=== PATIENT | male | born 2000 | race Caucasian/White ===

== ENCOUNTER 2019-10-06 12:23 | Emergency (ER) | payer OTHER ==
[2019-10-06 12:30] VITALS: BP 122/68; PULSE 66; TEMP 98.1; BMI 21.9
[2019-10-06] MEDS ORDERED: DIPHTH,PERTUSS(ACELL),TET 0.5 ML DISP.SYRIN IM ONE ×2 (12:47→12:51)
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
== END 2019-10-06 12:55 | disposition home or self-care (01) ==
LOC: JERFT 12:23
PROC: 3E0234Z Introduction of Serum, Toxoid and Vaccine into Muscle, Percutaneous Approach (ICD-10-PCS; principal; 2019-10-06)
DX: S41.152A Open bite of left upper arm, initial encounter (principal); W50.3XXA Accidental bite by another person, initial encounter; Y93.89 Activity, other specified; Y92.159 Unspecified place in reform school as the place of occurrence of the external cause; Y99.0 Civilian activity done for income or pay
CPT/HCPCS: 90715; 99282-25

== ENCOUNTER 2021-07-02 18:02 | Emergency (ER) | payer OTHER ==
[2021-07-02 18:22] VITALS: BP 115/80; PULSE 82; TEMP 98.2; BMI 21.9
[2021-07-02] MEDS ORDERED: ACETAMINOPHEN 500 MG TABLET (FP) ONE (19:02)
[2021-07-02] MEDS ORDERED: ACETAMINOPHEN 500 MG TABLET (FP) PO ONE (19:02)
== END 2021-07-02 21:01 | disposition home or self-care (01) ==
LOC: JERFT 18:02
DX: S06.0X0A Concussion without loss of consciousness, initial encounter (principal); S09.90XA Unspecified injury of head, initial encounter; W20.8XXA Other cause of strike by thrown, projected or falling object, initial encounter
CPT/HCPCS: 70450-TC; 99284-25